=== PATIENT | female | born 1965 | race Asian ===

== ENCOUNTER 2017-10-31 14:54 | Outpatient (CLI) | payer MEDICAID ==
--- NOTE | 2017-10-31 17:46 | XRAY Report ---
TWO VIEW CHEST: 10/31/2017 CLINICAL INDICATION: TB screening. FINDINGS: Frontal and lateral views of the chest demonstrate a normal cardiac silhouette. The lungs are clear. No effusion or pneumothorax is present. IMPRESSION: NORMAL CHEST. TD: 10/31/2017 15:37
== END 2017-10-31 14:55 | disposition home or self-care (01) ==
LOC: DI 14:54
PROVIDERS: ATTEND Family Medicine
DX: Z11.1 Encounter for screening for respiratory tuberculosis (principal)
CPT/HCPCS: 71046

== ENCOUNTER 2020-01-09 18:25 | Outpatient (CLI) | payer OTHER ==
--- NOTE | 2020-01-10 09:32 | Ultrasound Report ---
PROCEDURE: Duplex Lwr Ext Arterial RT INDICATIONS: PAIN IN RT LEG TECHNIQUE: Color and pulse Doppler interrogation was performed of the right lower extremity arterial system, wit h image documentation. COMPARISON: None. FINDINGS: Common femoral artery: 110 cm/sec, with triphasic flow. Deep femoral artery: 59 cm/sec, with monophasic flow. Proximal superficial femoral artery: 92 cm/sec, with triphasic flow. Mid superficial femoral artery: 108 cm/sec, with triphasic flow. Distal superficial femoral artery: 89 cm/sec, with triphasic flow. Popliteal artery: 51 cm/sec, with triphasic flow. Posterior tibial artery: 33 cm/sec, with biphasic flow. Anterior tibial artery/dorsalis pedis: 41/50 cm/sec, with biphasic/biphasic flow. Wheatley-scale imaging description: Minimal atherosclerotic change, no significant stenosis found. IMPRESSION: No sign of arterial insufficiency through the right lower extremity arterial vasculature. Reviewed by: Timothy Gaxiola MD on 01/10/2020 9:31 AM PDT Approved by: Timothy Gaxiola MD on 01/10/2020 9:31 AM PDT Station ID: [id number]
== END 2020-01-09 18:26 | disposition home or self-care (01) ==
LOC: DI 18:25
PROVIDERS: ATTEND Family Medicine
DX: M79.661 Pain in right lower leg (principal)

== ENCOUNTER 2020-01-22 09:19 | Outpatient (CLI) | payer OTHER ==
--- NOTE | 2020-01-22 12:53 | MRI Report ---
PROCEDURE: Shoulder RT W/O INDICATIONS: RT SHOULDER PAIN TECHNIQUE: Noncontrast oblique coronal T2 fast spin echo with fat saturation, oblique sagittal T1 spin echo and T2 fast spin echo with fat saturation, axial T1 spin echo and T2 fast spin echo with fat saturation t hrough the shoulder. COMPARISON: None. FINDINGS: Image quality: Excellent. Rotator cuff: Supraspinatus tendinopathy with partial thickness articular and bursal sided tear. No definite full-t hickness defect seen. Infraspinatus tendinopathy and low-grade articular surface fraying. The teres m inor appears intact. Subscapularis tendinopathy and partial thickness bursal sided tear. Borderline a trophy of the supraspinatus muscle. There is fatty infiltration of the infra spinatus muscle. Bones and bursae: No bone marrow contusions or fractures. Moderate acromioclavicular joint degeneration. The acromion demonstrates conventional anatomy, without an os acromiale. Severe subacromial/subdeltoid bursal fluid is present. Capsule and soft tissues: Labrum: Multiple sequential fraying of the labrum without discrete intrasubstance fluid signal intens ity. The long head of the biceps tendon demonstrates normal location and morphology. The rotator interval appears normal, without fibrosis. The coracohumeral ligament is normal in thickness. There is edema in the region of the right second and third ribs, incompletely evaluated IMPRESSION: Supraspinatal tendinopathy with high-grade partial thickness articular and bursal sided tear. Infraspinatus tendinopathy and low-grade articular surface fraying Subscapular tendinopathy and partial thickness bursal sided tear Borderline atrophy of the supraspinatus muscle Severe subacromial-subdeltoid bursitis Edema in the region of the anterolateral right second and third ribs, this is suspicious for acute ri b fracture. Consider further evaluation with dedicated right rib series. Reviewed by: Iftikhar Byrne MD on 01/22/2020 12:52 PM PDT Approved by: Iftikhar Byrne MD on 01/22/2020 12:52 PM PDT Station ID: [id number]
== END 2020-01-22 09:20 | disposition home or self-care (01) ==
LOC: DI 09:19
PROVIDERS: ATTEND Orthopaedic Surgery
DX: M75.111 Incomplete rotator cuff tear or rupture of right shoulder, not specified as traumatic (principal); M75.51 Bursitis of right shoulder; R93.89 Abnormal findings on diagnostic imaging of other specified body structures

== ENCOUNTER 2021-08-25 08:00 | Outpatient (CLI) | payer OTHER ==
[2021-08-27 11:38] LABS: NIL 0.36 IU/mL; TB1-NIL 0.14 IU/mL; TB2-NIL 0.06 IU/mL
== END 2021-08-25 23:59 | disposition home or self-care (01) ==
LOC: LAB.N 08:00
PROVIDERS: ATTEND Family Medicine
DX: Z13.9 Encounter for screening, unspecified (principal)
CPT/HCPCS: 36415; 86480

== ENCOUNTER 2021-09-27 08:00 | Outpatient (CLI) | payer OTHER ==
[2021-09-27 18:13] LABS: BILIRUBIN,URINE NEGATIVE (NEGATIVE); GLUCOSE, URINE (UA) NEGATIVE (NEGATIVE); KETONES,URINE (UA) NEGATIVE (NEGATIVE); LEUKOCYTE ESTERASE, URINE NEGATIVE (NEGATIVE); NITRITE,URINE NEGATIVE (NEGATIVE); OCCULT BLOOD,URINE MODERATE (NEGATIVE); PROTEIN,URINE NEGATIVE (NEGATIVE); UROBILINOGEN,URINE 0.2 (NORMAL) E.U./dL (NORMAL)
[2021-09-27 18:14] LABS: CLARITY,URINE CLEAR (CLEAR)
[2021-09-27 18:28] LABS: WBC,URINE 0-3 /HPF (0-5)
[2021-09-27 18:29] LABS: BACTERIA,URINE None Seen /HPF (None Seen); SQUAMOUS EPITHELIAL CELL,UR FEW Squamous (<= Few)
== END 2021-09-27 23:59 | disposition home or self-care (01) ==
LOC: LAB.R 08:00
PROVIDERS: ATTEND Internal Medicine
DX: M54.50 Low back pain, unspecified (principal); G89.29 Other chronic pain
CPT/HCPCS: 81001; 87086

== ENCOUNTER 2022-10-08 09:32 | Outpatient (CLI) | payer OTHER ==
[2022-10-08 19:12] LABS: BASOPHILS % (AUTO) 0.8 %; EOSINOPHILS # (AUTO) 0.1 10^3/uL (0.0-0.7); EOSINOPHILS % (AUTO) 2.3 %; HCT - HEMATOCRIT 38.8 % (37.0-47.0); HGB - HEMOGLOBIN 12.3 g/dL (12.0-16.0); LYMPHOCYTES # (AUTO) 2.5 10^3/uL (1.5-3.5); LYMPHOCYTES % (AUTO) 48.4 %; MEAN CORPUSCULAR HEMOGLOBIN 28.5 pg (27.0-31.0); MEAN CORPUSCULAR HGB CONC 31.7 g/dL (32.0-36.0); MEAN CORPUSCULAR VOLUME 89.8 fL (81.0-99.0); MEAN PLATELET VOLUME 14.2 fL (7.9-10.8); MONOCYTES # (AUTO) 0.3 10^3/uL (0.0-1.0); MONOCYTES % (AUTO) 5.8 %; NEUTROPHILS # (AUTO) 2.2 10^3/uL (1.5-6.6); NEUTROPHILS % (AUTO) 42.5 %; PLT - PLATELET COUNT 238 10^3/uL (130-450); RED BLOOD COUNT 4.32 10^6/uL (4.20-5.40); RED CELL DISTRIBUTION WIDTH 14.8 % (12.0-15.0); WHITE BLOOD COUNT 5.2 x10^3/uL (4.8-10.8)
[2022-10-08 19:33] LABS: ALBUMIN/GLOBULIN RATIO 1.4 (1.0-2.2); ALKALINE PHOSPHATASE 48 IU/L (42-121); ALT ALANINE AMINOTRANSFERASE 26 IU/L (10-60); AST ASPARTATE AMINOTRANSFERASE 25 IU/L (10-42); BILIRUBIN,TOTAL 0.6 mg/dL (0.2-1.0); BUN - BLOOD UREA NITROGEN 20 mg/dL (6-20); CALCIUM 8.7 mg/dL (8.5-10.3); CARBON DIOXIDE - CO2 25 mmol/L (21-32); CHLORIDE 108 mmol/L (101-111); CHOL/HDL RATIO 5.2 (<4.4); CHOLESTEROL 333 mg/dL; CREATININE 0.6 mg/dL (0.4-1.0); GFR - MDRD 103 (>89); GLUCOSE 92 mg/dL (70-100); HDL CHOLESTEROL 64 mg/dL; LDL CHOLESTEROL,CALCULATED 244 mg/dL; LDL/HDL RATIO 3.8 (<4.4); POTASSIUM 3.8 mmol/L (3.5-5.0); SODIUM 140 mmol/L (135-145); TOTAL PROTEIN 6.9 g/dL (6.7-8.2); TRIGLYCERIDES 125 mg/dL; VLDL CHOLESTEROL 25 mg/dL
[2022-10-08 19:40] LABS: THYROID STIMULATING HORMONE 1.34 uIU/mL (0.34-5.60)
== END 2022-10-08 09:33 | disposition home or self-care (01) ==
LOC: LAB.N 09:32
PROVIDERS: ATTEND Internal Medicine
DX: E78.5 Hyperlipidemia, unspecified (principal); R00.2 Palpitations; Z13.0 Encounter for screening for diseases of the blood and blood-forming organs and certain disorders involving the immune mechanism
CPT/HCPCS: 36415; 80053; 80061; 83721; 84443; 85025

== ENCOUNTER 2023-06-08 22:58 | Outpatient (CLI) | payer OTHER ==
--- NOTE | 2023-06-09 21:38 | Ultrasound Report ---
PROCEDURE: Head or Neck Soft Tissue INDICATIONS: THYROID CYST TECHNIQUE: Real-time scanning was performed of the thyroid gland, with image documentation. COMPARISON: None FINDINGS: Right: Thyroid lobe measures 4.9 x 2 x 2 cm, and is homogeneous in echotexture. Left: Thyroid lobe measures 6.6 x 4.1 x 5 cm, and is homogenous in echotexture. Isthmus: 0.4 cm thick. Nodule number: One Location: Right Size: 0.9 x 0.5 x 0.7 cm. Composition: Solid (2 points). Echogenicity: Isoechoic (1 point). Shape: wider than tall (0 points). Margins: Smooth (0 points). Echogenic foci: None (0 points). Total points: 3 ACR TI-RADS category: TI-RADS 3: Mildly suspicious. Nodule number: Two Location: Left Size: 5 x 3.5 x 4.7 cm. Composition: Mixed cystic and solid (1 point). Echogenicity: Anechoic/Hypoechoic (2 points). Shape: wider than tall (0 points). Margins: Smooth (0 points). Echogenic foci: None (0 points). Total points: 3 ACR TI-RADS category: TI-RADS 3: Mildly suspicious. IMPRESSION: 1.Left thyroid lobe demonstrates a mixed cystic and solid nodule measuring 5 x 3.5 x 4.7 cm (TIRADS-3 ). Given size, recommend FNA. 2.Right thyroid lobe demonstrates a nodule measuring 0.9 x 0.5 x 0.7 cm (TIRADS-3). Recommend repeat ultrasound in 1 year. ACR TI-RADS definitions and recommendations: TI-RADS 1 (benign): 0 points. FNA not needed. TI-RADS 2 (not suspicious): 2 points. FNA not needed. TI-RADS 3 (mildly suspicious): 3 points. "FNA if 2.5 cm or larger, follow up if 1.5 cm or larger (at 1, 3, and 5 years). TI-RADS 4 (moderately suspicious): 4-6 points. "FNA if 1.5 cm or larger, follow up if 1 cm or larger (at 1, 2, 3, and 5 years). TI-RADS 5 (highly suspicious): 7 points or more. "FNA if 1 cm or larger, follow up if 0.5 cm or larger (every year for 5 years). Reviewed by: Jeferson Ambrocio MD on 06/09/2023 9:37 PM PST Approved by: Jeferson Ambrocio MD on 06/09/2023 9:37 PM PST Station ID: [id number]
== END 2023-06-08 22:59 | disposition home or self-care (01) ==
LOC: DI 22:58
PROVIDERS: ATTEND Internal Medicine
DX: E04.2 Nontoxic multinodular goiter (principal)

== ENCOUNTER 2023-07-10 09:48 | Outpatient (CLI) | payer OTHER ==
[2023-07-10] MEDS ORDERED: LIDOCAINE-MPF 1% 5 ML VIAL ONE (09:52)
[2023-07-10] MEDS ORDERED: LIDOCAINE-MPF 1% 5 ML VIAL SUBQ ONE (10:45)
--- NOTE | 2023-07-10 11:35 | Ultrasound Report ---
PROCEDURE: FNA Bx w/US Gdn 1st Les INDICATIONS: THYROID CYST TECHNIQUE: The indications, alternatives, benefits, risks, and complications of the procedure were explained to the patient. Written informed consent was obtained and placed in the chart. The area of interest wa s examined sonographically and a site was chosen for ultrasound guided percutaneous sampling. The sk in was prepared and draped in the usual fashion, and anesthetized with 1% lidocaine infiltrated from the skin down to the lesion. Multiple passes were then performed, with contents emptied into an appr [facility] pathology specimen container. A bandage was applied to the area of access at completion of t he study. COMPARISON: 06/08/2023 FINDINGS: Location(s) of lesion(s) sampled: Left thyroid cystic lesion [place]: 22 and 25 gauge hypodermic needles. Number of passes: 5 Medications: 1% lidocaine for local anaesthesia. Complications: None. IMPRESSION: Successful ultrasound-guided left thyroid cystic lesion fine needle aspiration, with cytology results pending. Preaspiration size was 4.8 x 4.3 x 3.5 cm post aspiration, the lesion shrank to 1.7 x 1.7 x 1.2 cm. N o measurable soft tissue component remains. Spongiform appearance was noted post aspiration. Please f ollow up with cytology results to determine further management. Reviewed by: Davin Cross MD on 07/10/2023 11:34 AM PST Approved by: Davin Cross MD on 07/10/2023 11:34 AM PST Station ID: [id number]
== END 2023-07-10 09:49 | disposition home or self-care (01) ==
LOC: DI 09:48
PROVIDERS: ATTEND Internal Medicine
DX: E04.1 Nontoxic single thyroid nodule (principal)
CPT/HCPCS: 10005

== ENCOUNTER 2023-12-13 08:00 | Outpatient (CLI) | payer OTHER | END 2023-12-13 23:59 | disposition home or self-care (01) | LOC: LAB.N 08:00 | PROVIDERS: ATTEND Family Medicine | DX: R11.2 Nausea with vomiting, unspecified (principal); K62.5 Hemorrhage of anus and rectum; R19.7 Diarrhea, unspecified | CPT/HCPCS: 36415; 80048; 85025; 87045; 87046; 87329; 87427; 87493 ==

== ENCOUNTER 2023-12-13 08:30 | Outpatient (CLI) | payer OTHER ==
[2023-12-13 11:57] LABS: BASOPHILS % (AUTO) 0.2 %; EOSINOPHILS % (AUTO) 0.6 %; HCT - HEMATOCRIT 37.8 % (37.0-47.0); HGB - HEMOGLOBIN 12.1 g/dL (12.0-16.0); LYMPHOCYTES # (AUTO) 1.5 10^3/uL (1.5-3.5); LYMPHOCYTES % (AUTO) 30.3 %; MEAN CORPUSCULAR HEMOGLOBIN 28.7 pg (27.0-31.0); MEAN CORPUSCULAR VOLUME 89.6 fL (81.0-99.0); MONOCYTES # (AUTO) 0.4 10^3/uL (0.0-1.0); MONOCYTES % (AUTO) 7.9 %; NEUTROPHILS # (AUTO) 2.9 10^3/uL (1.5-6.6); NEUTROPHILS % (AUTO) 60.6 %; PLT - PLATELET COUNT 232 10^3/uL (130-450); RED BLOOD COUNT 4.22 10^6/uL (4.20-5.40); RED CELL DISTRIBUTION WIDTH 15.1 % (12.0-15.0); WHITE BLOOD COUNT 4.8 x10^3/uL (4.8-10.8)
[2023-12-13 12:11] LABS: CALCIUM 8.4 mg/dL (8.5-10.3); CREATININE 0.7 mg/dL (0.6-1.3); POTASSIUM 3.3 mmol/L (3.5-4.5)
== END 2023-12-13 08:45 | disposition home or self-care (01) ==
LOC: LAB.N 08:30
PROVIDERS: ATTEND Family Medicine
DX: R11.2 Nausea with vomiting, unspecified (principal); R19.7 Diarrhea, unspecified; K62.5 Hemorrhage of anus and rectum
CPT/HCPCS: 36415; 80048; 85025